=== PATIENT | female | born 1955 | race Caucasian/White ===

== ENCOUNTER 2018-05-01 15:53 | Emergency (ER) | payer MEDICAID ==
[2018-05-01 16:05] VITALS: BP 151/52; PULSE 78; RESP 20; TEMP 97.3; O2SAT 99
[2018-05-01] MEDS ORDERED: Tdap Vaccine 0.5 ml Vial (10-64 yrs) IM ONE ×2 (16:25→16:33)
--- NOTE | 2018-05-01 16:26 | C.PDOC ---
History Of Present Illness 62 y/o female presents to ED for medical evaluation of right ankle s/p mechanical fall. She states that the sidewalk was uneven and fell forward and to the right to break her fall. She denies any LOC, dizziness, headache, weakness, chest pain, and SOB. She denies hitting her head. She immediately came to ED for further evaluation. Time Seen by Provider: 05/01/18 16:26 Chief Complaint (Nursing): Lower Extremity Problem/Injury History Per: Patient History/Exam Limitations: no limitations Onset/Duration Of Symptoms: Sudden Onset Current Symptoms Are (Timing): Still Present Severity: Moderate Pain Scale Rating Of: 6 - Ankle/Foot Description Of Injury: Fell Currently Unable To: Bear Weight Alleviating Factor(s): Ice Therapy, Elevation Past Medical History Reviewed: Historical Data, Nursing Documentation, Vital Signs Vital Signs: Last Vital Signs Temp 97.3 F L 05/01/18 16:02 Pulse 78 05/01/18 16:02 Resp 20 05/01/18 16:02 BP 151/52 H 05/01/18 16:02 Pulse Ox 99 05/01/18 16:02 - Medical History PMH: Arthritis, Asthma, Diabetes, HTN, Hypercholesterolemia, Rheumatoid Arthrit is Other Surgeries: hysterectomy Family History: States: Diabetes, Hypertension - Social History Hx Tobacco Use: No Hx Alcohol Use: No Hx Substance Use: No - Immunization History Hx Tetanus Toxoid Vaccination: No Hx Influenza Vaccination: Yes (01/2018) Hx Pneumococcal Vaccination: Yes (2018) Review Of Systems Constitutional: Negative for: Fever, Chills, Weakness Cardiovascular: Negative for: Chest Pain, Palpitations, Light Headedness Respiratory: Negative for: Shortness of Breath Gastrointestinal: Negative for: Nausea, Vomiting, Abdominal Pain Skin: Positive for: Bruising (right ankle), Other (abrasion on left knee) Neurological: Negative for: Headache, Dizziness Physical Exam - Physical Exam Appears: Well, Non-toxic, No Acute Distress Skin: Normal Color, Warm, Dry, Ecchymosis (right ankle) Head: Atraumatic, Normacephalic, No Tenderness Neck: Normal ROM, Supple Lymphatic: No Adenopathy Chest: Symmetrical Cardiovascular: Rhythm Regular Respiratory: Normal Breath Sounds, No Accessory Muscle Use Gastrointestinal/Abdominal: Soft, No Tenderness Extremity: Tenderness (right ankle), Capillary Refill (less than 2 seconds), Swelling (right ankle) Extremity: Right: Limited ROM To Joint (ankle ), Painful To Bear Weight Pulses: Left Dorsalis Pedis: Normal, Right Dorsalis Pedis: Normal Neurological/Psych: Oriented x3, Normal Speech, Normal Cognition, Normal Sensation ED Course And Treatment O2 Sat by Pulse Oximetry: 99 - Other Rad right ankle X-Ray: Viewed By Me, Read By Radiologist Interpretation: Accession No. : [id number]. Patient Name / ID : JOHAN HOFF / [id number]. Exam Date : 05/01/2018 16:28:32 ( Approved ). Study Comment : Sex / Age : F / 62Y. Creator : Nga Barajas MD. Dictator : Nga Barajas MD. Technical Services Manager : Restaurant Shift Leader : Nga Barajas MD. Approver2 : Report Date : 05/01/2018 18:03:08. My Comment : . PROCEDURE: Right Ankle Radiographs. HISTORY: s/p fall. COMPARISON: None available. FINDINGS: BONES: Minimally displaced fracture deformity of the distal fibula. Question nondisplaced fracture of the navicular bone. The remainder of the visualized osseous structures appear intact. JOINTS: No dislocation. SOFT TISSUES: Marked soft tissue swelling, greatest laterally. No evidence of radiopaque foreign body. OTHER FINDINGS: None. IMPRESSION: Soft tissue swelling, greatest laterally. Evidence of acute minimally displaced fracture deformity of the distal fibula. Question nondisplaced fracture of the navicular bone. Medical Decision Making Medical Decision Making: A/P: Right ankle fracture - acute minimally displaced fracture deformity of distal fibula and questionable nondisplaced fracture of the navicular bone - posterior splint with sugar tongs placed - rest, elevation, and ice - Naproxen 500mg BID - follow up with Podiatry for further evaluation - patient verbalized understanding Disposition Counseled Patient/Family Regarding: Studies Performed, Diagnosis, Need For Followup - Disposition Referrals: Carmel Rios DPM [Staff Provider] - Disposition: HOME/ ROUTINE Disposition Time: 18:03 Condition: IMPROVED Additional Instructions: KAVYA PRADO, thank you for letting us take care of you today. Your provider was Jed Foss MD/Benedicto CRUZ and you were treated for RT ANKLE PAIN. The emergency medical care you received today was directed at your acute symptoms. If you were prescribed any medication, please fill it and take as directed. It may take several days for your symptoms to resolve. Return to the Emergency Department if your symptoms worsen, do not improve, or if you have any other problems. Please contact your doctor or call one of the physicians/clinics you have been referred to that are listed on the Patient Visit Information form that is included in your discharge packet. Bring any paperwork you were given at discharge with you along with any medications you are taking to your follow up visit. Our treatment cannot replace ongoing medical care by a primary care provider outside of the emergency department. Thank you for allowing the [facility] team to be part of your care today. Prescriptions: Naproxen [Naprosyn] 500 mg PO BID #30 tablet Instructions: Ankle Fracture (DC) Forms: [facility] (Burmese), General Discharge Instructions - Clinical Impression Clinical Impression: Ankle fracture, right - PA / KNOCKOUT MAN / Resident Statement MD/DO has reviewed & agrees with the documentation as recorded.
--- NOTE | 2018-05-01 18:06 | RAD ---
PROCEDURE: Right Ankle Radiographs. HISTORY: s/p fall COMPARISON: None available FINDINGS: BONES: Minimally displaced fracture deformity of the distal fibula. Question nondisplaced fracture of the navicular bone. The remainder of the visualized osseous structures appear intact. JOINTS: No dislocation. SOFT TISSUES: Marked soft tissue swelling, greatest laterally. No evidence of radiopaque foreign body. OTHER FINDINGS: None. IMPRESSION: Soft tissue swelling, greatest laterally. Evidence of acute minimally displaced fracture deformity of the distal fibula. Question nondisplaced fracture of the navicular bone.
== END 2018-05-01 19:05 | disposition home or self-care (01) ==
LOC: C.ER 15:53
DX: S82.891A Other fracture of right lower leg, initial encounter for closed fracture (principal); W18.30XA Fall on same level, unspecified, initial encounter; Y92.480 Sidewalk as the place of occurrence of the external cause; E78.00 Pure hypercholesterolemia, unspecified; E11.9 Type 2 diabetes mellitus without complications; I10 Essential (primary) hypertension; J45.909 Unspecified asthma, uncomplicated; M06.9 Rheumatoid arthritis, unspecified; Z23 Encounter for immunization

== ENCOUNTER 2018-08-14 09:18 | Emergency (ER) | payer MEDICAID ==
[2018-08-14 09:26] VITALS: BP 131/74; RESP 93; TEMP 98.3; O2SAT 20
--- NOTE | 2018-08-14 09:45 | C.PDOC ---
History Of Present Illness Patient is a 62 year old female, who presents to the ED for evaluation of splinter in her left heel and has been present since yesterday. Patient reports that she was backing up in her home on a wooden floor and believes this caused her splinter. She states that she was unable to take the splinter out and reports her pain as non-radiating and a 4/10 and it is worse when she steps on her foot. She denies any fever or chills. Time Seen by Provider: 08/14/18 09:28 Chief Complaint (Nursing): Abnormal Skin Integrity History Per: Patient History/Exam Limitations: no limitations Onset/Duration Of Symptoms: Days (1) Current Symptoms Are (Timing): Still Present Location Of Injury: Left: Foot Quality Of Symptoms: Painful Pain Scale Rating Of: 4 Recent travel outside of the [place]: No Additional History Per: Patient Past Medical History Reviewed: Historical Data, Nursing Documentation, Vital Signs Vital Signs: Last Vital Signs Temp 98.3 F 08/14/18 09:23 Pulse Resp 93 H 08/14/18 09:23 BP 131/74 08/14/18 09:23 Pulse Ox 20 L 08/14/18 09:23 Primary Care Provider: Rajeev Rasmussen - Medical History PMH: Arthritis, Asthma, Diabetes, HTN, Hypercholesterolemia, Rheumatoid Arthritis Surgical History: No Surg Hx Family History: States: Diabetes, Hypertension - Social History Hx Tobacco Use: No Hx Alcohol Use: No Hx Substance Use: No - Immunization History Hx Tetanus Toxoid Vaccination: Yes Hx Influenza Vaccination: Yes (01/2018) Hx Pneumococcal Vaccination: Yes (2017) Review Of Systems Constitutional: Negative for: Fever, Chills Skin: Positive for: Other (splinter on bottom of left heel) Physical Exam - Physical Exam Appears: Non-toxic, No Acute Distress Extremity: Other (small black spot dorsum of heel of left foot. No redness, swelling, pus drainage ) Neurological/Psych: Oriented x3 ED Course And Treatment O2 Sat by Pulse Oximetry: 20 (on RA) Pulse Ox Interpretation: Normal Procedure: Blank - Procedure Procedure:: Splinter removal - Consent obtained: Consent obtained: Verbal - Performed by: Performed by:: Attending physician - Location Location: Left, Dorsal - Description Discription of Procedure: 08/14/18 (Area cleaned and prepped with Betadine. Spl inter removed. No adverse effects. Patient tolerated well. ) - Result Result: Successful - Patient Tolerated Procedure Patient Tolerated Procedure:: Well Disposition - Disposition Disposition: HOME/ ROUTINE Disposition Time: 09:44 Condition: STABLE Forms: [facility] (Dominican), General Discharge Instructions - POA Present On Arrival: None - Clinical Impression Clinical Impression: Splinter of left foot - Scribe Statement The provider has reviewed the documentation as recorded by the Toriibyris Zapata All medical record entries made by the Toriibyris were at my direction and personally dictated by me. I have reviewed the chart and agree that the record accurately reflects my personal performance of the history, physical exam, medical decision making, and the department course for this patient. I have also personally directed, reviewed, and agree with the discharge instructions and disposition.
== END 2018-08-14 09:53 | disposition home or self-care (01) ==
LOC: C.ER 09:18
DX: S90.852A Superficial foreign body, left foot, initial encounter (principal); W45.8XXA Other foreign body or object entering through skin, initial encounter